=== PATIENT | female | born 1965 | race Caucasian/White ===

== ENCOUNTER 2017-08-22 18:24 | Emergency (ER) | payer SELFPAY ==
[~2017-08-22] VITALS: Ht 162.6 cm; Wt 62.0 kg
[2017-08-22 18:26] VITALS: BP 130/89; PULSE 98; RESP 16; TEMP 98.6; O2SAT 99
[2017-08-22 20:29] LABS: AUTOMATED NEUTROPHIL # 4.5 TH/MM3 (1.8-7.7); BASOPHIL % 0.5 % (0.0-2.0); EOSINOPHIL % 0.6 % (0.0-4.0); HEMOGLOBIN 14.6 GM/DL (11.6-15.3); LYMPH % 34.8 % (9.0-44.0); LYMPHOCYTE # 2.6 TH/MM3 (1.0-4.8); MEAN CELL VOLUME 93.3 FL (80.0-100.0); MEAN CORPUSCULAR HEMOGLOBIN 32.3 PG (27.0-34.0); MEAN CORPUSCULAR HGB CONC 34.7 % (32.0-36.0); MEAN PLATELET VOLUME 7.1 FL (7.0-11.0); MONO % 4.9 % (0.0-8.0); MONOCYTE # 0.4 TH/MM3 (0-0.9); NEUT % 59.2 % (16.0-70.0); PLATELET COUNT 464 TH/MM3 (150-450); RED BLOOD COUNT 4.51 MIL/MM3 (4.00-5.30); RED CELL DISTRIBUTION WIDTH 13.9 % (11.6-17.2); WHITE BLOOD COUNT 7.6 TH/MM3 (4.0-11.0)
[2017-08-22 20:31] LABS: BILIRUBIN, URINE NEG (NEG); BLOOD, URINE NEG (NEG); GLUCOSE,URINE NEG (NEG); KETONE, URINE NEG (NEG); NITRITE,URINE NEG (NEG); SQUAMOUS EPITHELIAL CELL URINE <1 /hpf (0-5); URINE COLOR LIGHT-YELLOW (YELLW/STRAW); URINE LEUKOCYTE ESTERASE NEG (NEG)
[2017-08-22 20:42] LABS: ALBUMIN 4.5 GM/DL (3.4-5.0); AST (GOT) 22 U/L (15-37); BICARBONATE 32.9 MEQ/L (21.0-32.0); BLOOD UREA NITROGEN 5 MG/DL (7-18); CALCIUM 9.5 MG/DL (8.5-10.1); CHLORIDE 105 MEQ/L (98-107); CREATININE 0.78 MG/DL (0.50-1.00); GLOMERULAR FILTRATION RATE 78 ML/MIN (>89); GLUCOSE,RANDOM 90 MG/DL (74-106); LIPASE 584 U/L (73-393); SODIUM (NA) 140 MEQ/L (136-145)
[2017-08-22 20:43] LABS: ALT (GPT) 37 U/L (10-53)
[2017-08-22 20:45] LABS: ALKALINE PHOSPHATASE 104 U/L (45-117); TOTAL BILIRUBIN ADULT 0.3 MG/DL (0.2-1.0); TOTAL PROTEIN 8.3 GM/DL (6.4-8.2)
[2017-08-22] MEDS ORDERED: SOMA250T PO (21:55)
[2017-08-22] MEDS ORDERED: TRAZ300T2 PO (21:55)
[2017-08-22] MEDS ORDERED: SERO400T PO (21:55)
[2017-08-22] MEDS ORDERED: PROM25TA10 PO (21:55)
[2017-08-22] MEDS ORDERED: XANA2TAB2 PO (21:55)
--- NOTE | 2017-08-22 22:42 | PD ---
HPI Chief Complaint: GI Complaint Time Seen by Provider: 22:13 Travel History International Travel<30 days: No Contact w/Intl Traveler<30days: No Traveled to known affect area: No History of Present Illness HPI The patient is a 52 year old female who presents to the [facility] emergency department with a history of difficulty keeping food down for 2 months. She has had vomiting 30 minutes after eating for the last 2 months, usually 3 times per day. She has had loose dark stools for the last 2 months. Prior to this for as long as she can recall, she has chronic nausea that is managed by her psychiatrist with Phenergan. She has had chronic abdominal pain for years with a history of endometriosis and ovarian cysts. She reports that she continues to have this same abdominal pain that is periumbilical. The patient reports that she has over the last month had urinary frequency and urgency. She denies having any dysuria. On review of systems, she denies having any recent fevers, cough, congestion, neck pain, chest pain, shortness of breath, or neurologic symptoms. She denies ever seeing a station baggage agent regarding this. She denies ever having upper or lower endoscopy. [facility] Past Medical History Narrative Medical The patient's past medical history is significant for chronic nausea, anorexia in her teens and early 20s, bipolar disorder. Asthma: Yes Bipolar Disorder: Yes Diminished Hearing: No Medical other: Yes (anoxeia) Immunizations Current: Yes Tetanus Vaccination: Unknown Influenza Vaccination: No ?: Not Menopausal: Yes Dilation and Curettage (D&C): Yes Tubal Ligation: Yes Past Surgical History Narrative Surgical The patient's past surgical history is significant for BTL, low back surgery, d and C. Social History Alcohol Use: No Tobacco Use: Yes (2 ppd) Substance Use: Yes (mariquanna- 2 x per week.) Allergies-Medications (Allergen,Severity, Reaction): Coded Allergies: prochlorperazine (Verified Allergy, Severe, Seizures, 08/22/17) Reported Meds & Prescriptions Reported Meds & Active Scripts Active Reported Seroquel (Quetiapine Fumarate) 400 Mg Tab 400 Mg PO HS Trazodone (Trazodone HCl) 300 Mg Tab 300 Mg PO HS Soma (Carisoprodol) 250 Mg Tab 250 Mg PO QID PRN Phenergan (Promethazine HCl) 25 Mg Tablet 25 Mg PO Q6H PRN Xanax (Alprazolam) 2 Mg Tab 2 Mg PO Q6HR Review of Systems Except as stated in HPI: all other systems reviewed are Neg General / Constitutional: No: Fever Eyes: No: Visual changes HENT: No: Headaches Cardiovascular: No: Chest Pain or Discomfort Respiratory: No: Shortness of Breath Gastrointestinal: Positive: Nausea, Vomiting, Diarrhea, Abdominal Pain, Changes in Bowel Habits, Indigestion Genitourinary: No: Dysuria Musculoskeletal: No: Pain Skin: No Rash Neurologic: No: Weakness Psychiatric: No: Depression Endocrine: No: Polydipsia Hematologic/Lymphatic: No: Easy Bruising Physical Exam Narrative General: The patient is a well-developed well-nourished female in no acute distress. Head and Neck exam: Head is normocephalic atraumatic. Eyes: EOMI, pupils are equal round and reactive to light. Nose: Midline septum with pink mucous membranes Mouth: Dentition unremarkable. Moist mucus membranes. Posterior oropharynx is not erythematous. No tonsillar hypertrophy. Uvula midline. Airway patent. Neck: No palpable lymphadenopathy. No nuchal rigidity. No thyromegaly. Cardiovascular: Regular rate and rhythm without murmurs, gallops, or rubs. Lungs: Clear to auscultation bilaterally. No wheezes, rhonchi, or rales. Abdomen: Soft, with reported tenderness on palpation surrounding the umbilicus, no other tenderness on palpation of the other quadrants of abdomen. Normal bowel sounds are audible. No tenderness on palpation of McBurney's point. No guarding, rebound, or rigidity. Negative Mccloud's sign. Extremities: No clubbing, cyanosis, or edema. 2+ pulses in all 4 extremities. Back: No spinous process tenderness to palpation. Left-sided CVA tenderness is noted on palpation. Neurologic Exam: Grossly nonfocal. Skin Exam: No rash noted. Intact skin that is warm and dry. RECTAL EXAM: No masses or tenderness, stool is dark brown to black in color. It is Hemoccult negative. She reports that she has taken Pepto-Bismol occasionally for her symptoms. Data Data Last Documented VS Vital Signs Date Time Temp Pulse Resp B/P (MAP) Pulse Ox O2 Delivery O2 Flow Rate FiO2 08/22/17 22:56 98.0 80 16 143/66 (91) 99 Room Air Orders Orders Complete Blood Count With Diff (08/22/17 18:52) Comprehensive Metabolic Panel (08/22/17 18:52) Lipase (08/22/17 18:52) Prothrombin Time / Inr (Pt) (08/22/17 18:52) Act Partial Throm Time (Ptt) (08/22/17 18:52) Urinalysis - C+S If Indicated (08/22/17 18:52) Ct Abd/Pel W Iv Contrast(Rout) (08/23/17 00:10) Iohexol 350 Inj (Omnipaque 350 Inj) (08/23/17 00:50) Pantoprazole Inj (Protonix Inj) (08/23/17 01:30) Labs Laboratory Tests Test 08/22/17 19:21 08/22/17 20:05 Urine Color LIGHT-YELLOW Urine Turbidity CLEAR Urine pH 7.0 Urine Specific [place] 1.003 Urine Protein NEG mg/dL Urine Glucose (UA) NEG mg/dL Urine Ketones NEG mg/dL Urine Occult Blood NEG Urine Nitrite NEG Urine Bilirubin NEG Urine Urobilinogen LESS THAN 2.0 MG/DL Urine Leukocyte Esterase NEG Urine RBC LESS THAN 1 /hpf Urine WBC 1 /hpf Urine Squamous Epithelial Cells <1 /hpf Microscopic Urinalysis Comment CULT NOT INDICATED White Blood Count 7.6 TH/MM3 Red Blood Count 4.51 MIL/MM3 Hemoglobin 14.6 GM/DL Hematocrit 42.0 % Mean Corpuscular Volume 93.3 FL Mean Corpuscular Hemoglobin 32.3 PG Mean Corpuscular Hemoglobin Concent 34.7 % Red Cell Distribution Width 13.9 % Platelet Count 464 TH/MM3 Mean Platelet Volume 7.1 FL Neutrophils (%) (Auto) 59.2 % Lymphocytes (%) (Auto) 34.8 % Monocytes (%) (Auto) 4.9 % Eosinophils (%) (Auto) 0.6 % Basophils (%) (Auto) 0.5 % Neutrophils # (Auto) 4.5 TH/MM3 Lymphocytes # (Auto) 2.6 TH/MM3 Monocytes # (Auto) 0.4 TH/MM3 Eosinophils # (Auto) 0.0 TH/MM3 Basophils # (Auto) 0.0 TH/MM3 CBC Comment DIFF FINAL Differential Comment Blood Urea Nitrogen 5 MG/DL Creatinine 0.78 MG/DL Random Glucose 90 MG/DL Total Protein 8.3 GM/DL Albumin 4.5 GM/DL Calcium Level 9.5 MG/DL Alkaline Phosphatase 104 U/L Aspartate Amino Transf (AST/SGOT) 22 U/L Alanine Aminotransferase (ALT/SGPT) 37 U/L Total Bilirubin 0.3 MG/DL Sodium Level 140 MEQ/L Potassium Level 3.9 MEQ/L Chloride Level 105 MEQ/L Carbon Dioxide Level 32.9 MEQ/L Anion Gap 2 MEQ/L Estimat Glomerular Filtration Rate 78 ML/MIN Lipase 584 U/L MDM Medical Decision Making Medical Screen Exam Complete: Yes Emergency Medical Condition: Yes Medical Record Reviewed: Yes Differential Diagnosis Cyclic vomiting syndrome, versus biliary colic, versus peptic ulcer disease, versus acid reflux, versus psychiatric disorder, versus gastroparesis Narrative Course During the course of the patients emergency department visit, the patients history, examination, and differential diagnosis were reviewed with the patient. The patient was placed on a tetryl screen operator with oximetry and frequent blood pressure monitoring. The patient had IV access obtained and blood work sent for analysis. The patient was initially provided Protonix 40 mg IV. A rectal examination did reveal dark stools that were Hemoccult negative. The patients laboratory studies were reviewed and remarkable for a CBC that is within normal limits with a normal hemoglobin. CMP is remarkable for CO2 of 32.9, BUN 5, creatinine 0.78, GFR 78, liver function tests within normal limits , total protein 8.3, lipase 584, urinalysis is unremarkable. Radiology studies were reviewed and remarkable for a CT scan of the abdomen and pelvis that shows no acute findings, mild fatty liver, previous surgical fusion across the lumbosacral junction, mild scoliosis. No calcified gallstones or biliary ductal dilatation. No abnormality of the pancreas noted. The patient reports a chronic problem with abdominal pain, nausea vomiting and diarrhea. The patient will be treated with the proton pump inhibitor while she awaits follow-up with a station baggage agent. She is given the name of the station baggage agent on-call for follow-up. She is instructed to call in the morning for a follow-up appointment with . The patient is resting comfortably and feels better, is alert and in no distress. The patients results and examination findings were discussed with the patient. The repeat examination is unremarkable and benign. The history, exam, diagnostic testing, and current condition do not suggest any significant pathology to warrant further testing, continued ED treatment, admission, or surgical evaluation at this point. The vital signs have been stable. The patient does not have uncontrollable pain, intractable vomiting, or other significant symptoms. The patient's condition is stable and appropriate for discharge. The patient will pursue further outpatient evaluation with a primary care physician or other designated or consulting physician as indicated in the discharge instructions. The patient expressed understanding and was agreeable with this plan. [facility] Point of Care Internal Pos. & Neg. Controls: Passed Fecal Specimen Occult Blood: Negative Diagnosis Primary Impression: Nausea, vomiting, and diarrhea Additional Impression: Chronic abdominal pain Referrals: Lele Arias MD call for appointment [facility] 2 days Patient Instructions: Abdominal Pain (ED), Acute Diarrhea (ED), Acute Nausea and Vomiting (ED), General Instructions Med/Other Pt SpecificInfo: Prescription(s) given Scripts Pantoprazole (Protonix) 40 Mg Tab 40 MG PO DAILY for Ulcer Prevention, #30 TAB 0 Refills Prov: Tamika Prather MD 08/23/17 Disposition: 01 DISCHARGE HOME Condition: Stable Tamika Prather MD Aug 22, 2017 22:42
[2017-08-22 22:56] VITALS: BP 143/66; PULSE 80; RESP 16; TEMP 98; O2SAT 99
[2017-08-23] MEDS ORDERED: IOHEXOL 350 MG/ML 10 ML VIAL (for RAD DIAG) IVCONTRAST ONE (00:50)
--- NOTE | 2017-08-23 01:12 | RADRPT ---
EXAM DATE/TIME: 08/23/2017 00:41 [place] COMPARISON: No previous studies available for comparison. INDICATIONS : Abdomen pain and vomiting. IV CONTRAST: 100 cc Omnipaque 350 (iohexol) IV ORAL CONTRAST: No oral contrast ingested. RADIATION DOSE: 5.22 CTDIvol (mGy) MEDICAL HISTORY : None SURGICAL HISTORY : Tubal ligation. ENCOUNTER: Initial ACUITY: 2 months PAIN SCALE: 4/10 LOCATION: Bilateral abdomen TECHNIQUE: Volumetric scanning of the abdomen and pelvis was performed. Using automated exposure control and ad justment of the mA and/or kV according to patient size, radiation dose was kept as low as reasonably achievable to obtain optimal diagnostic quality images. DICOM format image data is available electro nically for review and comparison. FINDINGS: Lung bases are clear. No fatty liver. No acute findings in the spleen, adrenals, kidneys or pancreas. No calcified gallstones or biliary ductal dilatation. No free fluid. No bowel obstruction. No adenopathy. Previous fusion across the lumbosacral junction. CONCLUSION: 1. No acute findings. Mild fatty liver. Previous surgical fusion across the lumbosacral junction. Mil d scoliosis. Robert Russell MD on August 23, 2017 at 1:02 Board Certified Radiologist. This report was verified electronically.
[2017-08-23] MEDS ORDERED: PROT40TA PO (01:26)
[2017-08-23] MEDS ORDERED: PANTOPRAZOLE SODIUM 40 MG VIAL IV PUSH ONE (01:30)
== END 2017-08-23 02:01 | disposition home or self-care (01) ==
LOC: NEPE 18:24
DX: R19.7 Diarrhea, unspecified (principal); R11.2 Nausea with vomiting, unspecified; R10.9 Unspecified abdominal pain; G89.29 Other chronic pain; F17.210 Nicotine dependence, cigarettes, uncomplicated; F31.9 Bipolar disorder, unspecified; J45.909 Unspecified asthma, uncomplicated; K76.0 Fatty (change of) liver, not elsewhere classified
CPT/HCPCS: 74177; 80053; 81001; 83690; 85025; 96374; 99284; C9113; Q9967; 85610; 85730